=== PATIENT | female | born 1985 | race Caucasian/White ===

== ENCOUNTER 2018-01-03 18:23 | Emergency (ER) | payer SELFPAY ==
[~2018-01-03] VITALS: Ht 160 cm; Wt 47.0 kg
[2018-01-04] MEDS ORDERED: IBUPROFEN 600MG TABLET PO ONE (05:00)
[2018-01-04 05:30] VITALS: BP 94/54
== END 2018-01-04 05:45 | disposition home or self-care (01) ==
LOC: ER 18:23
DX: N64.4 Mastodynia (principal); Z98.890 Other specified postprocedural states
CPT/HCPCS: 76641; 99284; Z7610